=== PATIENT | male | born 1970 | race Caucasian/White ===

== ENCOUNTER 2017-04-22 14:24 | Emergency (ER) | payer OTHER ==
[~2017-04-22] VITALS: Ht 180.3 cm; Wt 145.3 kg
[~2017-04-22 14:24] MED LIST: CITRATE OF MAG296 ML PO; COLACE100 MG PO; FLEXERIL10 MG PO; IBUPROFEN800 MG PO; LISINOPRIL20 MG PO; NAPROSYN500 MG PO; NOHOMEMEDS; NORCO 5/3251 TABLET PO; PERCOCET 5/31 TABLET PO; TYLENOL WITH C1 EACH PO; ZOFRAN4 MG PO
[2017-04-22 15:00] LABS: HEMATOCRIT 49.7 % (38.0-50.0); HEMOGLOBIN 17.3 G/DL (12.5-16.6); MCH 30.9 PG (29.0-34.0); MCHC 34.8 G/DL (30.0-36.0); MCV 88.9 FL (86-99); PLATELET COUNT 243 K/uL (156-360); RBC DIS.WIDTH-SD 39.1 % (39-53); RED BLOOD COUNT 5.59 M/uL (4.00-5.50); WHITE BLOOD COUNT 8.9 K/uL (4.1-10.2)
[2017-04-22 15:05] LABS: INTER. NORMALIZED RATIO 1.2
[2017-04-22 15:09] LABS: CHLORIDE 102 mEq/L (99-109); POTASSIUM 4.3 mEq/L (3.7-5.4); SODIUM 138 mEq/L (136-147)
[2017-04-22 15:10] LABS: GLUCOSE 98 mg/dL (70-99)
[2017-04-22 15:14] LABS: CREATININE 1.2 mg/dL (0.6-1.3); GFR ESTIMATE (CALCULATED) > 59 mL/min/ (58.99-99999)
[2017-04-22 15:15] LABS: UREA NITROGEN (BUN) 9 mg/dL (9-23)
[2017-04-22] MEDS ORDERED: KEFLEX500 MG PO (16:06)
[2017-04-22 16:44] VITALS: BP 148/60
== END 2017-04-22 16:44 | disposition home or self-care (01) ==
LOC: EME 14:24
PROVIDERS: Emergency Medicine
DX: L03.116 Cellulitis of left lower limb (principal)
CPT/HCPCS: 80048; 85027; 85610; 93971; 99281; 99284